=== PATIENT | female | born 1950 | race Caucasian/White ===

== ENCOUNTER 2020-01-15 09:54 | Emergency (ER) | payer OTHER ==
[~2020-01-15] VITALS: Ht 154.9 cm; Wt 47.2 kg
[2020-01-15] MEDS ORDERED: PREDNISONE 20 M20 MG PO (12:32)
[2020-01-15] MEDS ORDERED: PEPCID20 MG PO (12:32)
[2020-01-15 13:18] VITALS: BP 144/63
[2020-01-16] MEDS ORDERED: NORCO 5-325 TA1 EAC2 PO (23:33)
[2020-01-16] MEDS ORDERED: SENNA-DOCUSATE1 EAC1 PO (23:33)
== END 2020-01-15 13:18 | disposition home or self-care (01) ==
LOC: ER 09:54
DX: T78.3XXA Angioneurotic edema, initial encounter (principal); R13.10 Dysphagia, unspecified; F32.9 Major depressive disorder, single episode, unspecified; Z79.899 Other long term (current) drug therapy; Z88.8 Allergy status to other drugs, medicaments and biological substances; Z88.2 Allergy status to sulfonamides

== ENCOUNTER 2020-01-16 17:31 | Emergency (ER) | payer OTHER ==
[~2020-01-16] VITALS: Ht 152.4 cm; Wt 47.2 kg
[~2020-01-16 17:31] MED LIST: PEPCID20 MG PO; PREDNISONE 20 M20 MG PO
[2020-01-16 20:03] LABS: ABSOLUTE NEUTROPHILS 4.7 thou/uL (1.4-8.2); BASOPHILS 0.5 % (0.0-2.0); HEMATOCRIT 33.2 % (37.0-47.0); HEMOGLOBIN 11.2 gm/dL (12.0-15.0); MCH 30.7 pg (26.0-34.0); MCHC 33.7 g/dL (28.0-37.0); MCV 91.1 fL (80.0-100.0); MONOCYTES 2.5 % (1.0-8.0); PLATELET COUNT 438 thou/uL (150-400); RBC 3.65 mil/uL (4.20-5.00); WBC 5.4 thou/uL (4.0-11.0)
[2020-01-16 20:11] LABS: ANION GAP 8 mmol/L (7-16); BUN 23 mg/dL (7-18); CALCIUM 9.2 mg/dL (8.5-10.1); CHLORIDE 101 mmol/L (98-107); CO2 29 mmol/L (21-32); CREATININE 0.9 mg/dL (0.6-1.0); GLUCOSE 129 mg/dL (74-106); POTASSIUM 3.6 mmol/L (3.5-5.1); SODIUM 138 mmol/L (136-145)
[2020-01-16 20:22] LABS: TROPONIN-I <0.06 ng/mL (<0.06)
[2020-01-16 22:26] LABS: URINE BILIRUBIN NEGATIVE (Negative); URINE BLOOD 3+ (Negative); URINE CLARITY CLEAR; URINE COLOR YELLOW; URINE GLUCOSE-RANDOM* NEGATIVE (Negative); URINE KETONES NEGATIVE (Negative); URINE NITRITE-REFLEX NEGATIVE (Negative); URINE PROTEIN (DIPSTICK) 1+ (Negative); URINE SPECIFIC GRAVITY 1.025 (1.005-1.035); URINE UROBILINOGEN 0.2 E.U./dl (0.2-1.0)
[2020-01-16 22:27] LABS: URINE LEUKOCYTES-REFLEX 1+ (Negative)
[2020-01-16 22:34] LABS: BACTERIA-REFLEX 1-9 Few /HPF (None Seen); CASTS None Seen /LPF (None Seen); CRYSTALS None Seen /LPF (None Seen); SQUAMOUS 0-3 Few /LPF (0-3); URINE RBC >20 Many /HPF (0-2); URINE WBC-REFLEX 6-15 Few /HPF (0-5)
[2020-01-16] MEDS ORDERED: NORCO 5-325 TA1 EAC2 PO (23:33)
[2020-01-16] MEDS ORDERED: SENNA-DOCUSATE1 EAC1 PO (23:33)
[2020-01-16 23:44] VITALS: BP 141/68
--- NOTE | 2020-01-17 10:52 | EKG ---
[facility] [place] [address] ELECTROCARDIOGRAM REPORT Name: SHAYLA LINARES Room #: DEP [facility]#: [id number] Admission: 01/16/20 Attend Phys: Discharge: 01/16/20 Date of : 46 Report #: [id number] THIS REPORT FOR: cc: Zaheer Humphrey II, MD, II, Arthur A. MD Lundgren,Benjy Severino MD [facility] ~ THIS REPORT FOR: //name// [facility] ED Test Date: 2020-01-16 Test Time: 19:37:27 Pat Name: SHAYLA LINARES Department: Room: Gender: F [employer] Operator: : [id number] Requested By: Andrey Cevallos Order Number: [id number] MD: Benjy Butler Measurements Intervals Mongo Rate: 66 P: 47 ND: 124 QRS: 4 QRSD: 85 T: 60 QT: 440 QTc: 461 Interpretive Statements Sinus rhythm Atrial premature complexes Abnormal R-wave progression, early transition Compared to ECG 08/27/2008 11:06:29 Atrial premature complex(es) now present Sinus bradycardia no longer present Electronically Signed On 01-17-2020 10:52:04 CDT by Benjy Butler [email or web address] <ELECTRONICALLY SIGNED> By: Benjy Butler MD, FAC 01/17/20 [id number] Benjy Butler MD, FAC /EPI
== END 2020-01-16 23:45 | disposition home or self-care (01) ==
LOC: ER 17:31
PROVIDERS: Emergency Medicine
DX: S59.201A Unspecified physeal fracture of lower end of radius, right arm, initial encounter for closed fracture (principal); R55 Syncope and collapse; F32.9 Major depressive disorder, single episode, unspecified; G35 Multiple sclerosis; Z79.899 Other long term (current) drug therapy; Z88.8 Allergy status to other drugs, medicaments and biological substances; Z88.2 Allergy status to sulfonamides; W19.XXXA Unspecified fall, initial encounter; Y93.E2 Activity, laundry; Y92.098 Other place in other non-institutional residence as the place of occurrence of the external cause; Y99.8 Other external cause status

== ENCOUNTER 2020-08-20 20:47 | Emergency (ER) | payer OTHER ==
[~2020-08-20] VITALS: Ht 149.9 cm; Wt 44.9 kg
[~2020-08-20 20:47] MED LIST changes: +NORCO 5-325 TA1 EAC2 PO; +SENNA-DOCUSATE1 EAC1 PO
[2020-08-20 20:52] VITALS: BP 147/54
== END 2020-08-20 21:47 | disposition home or self-care (01) ==
LOC: ER 20:47
DX: T82.898A Other specified complication of vascular prosthetic devices, implants and grafts, initial encounter (principal); Z87.891 Personal history of nicotine dependence; Z79.899 Other long term (current) drug therapy; Z88.2 Allergy status to sulfonamides; Z88.8 Allergy status to other drugs, medicaments and biological substances